=== PATIENT | male | born 1990 | race American Indian/Alaskan Native ===

== ENCOUNTER 2017-05-23 17:56 | Emergency (ER) | payer SELFPAY ==
[2017-05-23] MEDS ORDERED: TETRACAINE 0.5% OU ONE (20:19)
[2017-05-23] MEDS ORDERED: MORPHINE IM ONE (20:36)
[2017-05-23] MEDS ORDERED: ZOFRAN ODT PO ONE (20:37)
--- NOTE | 2017-05-23 20:42 | Emergency Department Report ---
ED ENT HPI - General Chief complaint: Earache Stated complaint: INSECT INSIDE EAR/PAIN Time Seen by Provider: 05/23/17 19:35 Source: patient Mode of arrival: Ambulatory Limitations: No Limitations - History of Present Illness Initial comments: 26 y/o male presents to ED with c/o discomfort, pain in rt ear x 3 days. Pt recals introducing a Q-tip into his right ear x 3 days ago complaint: ear pain -: Gradual, days(s) (3) Location: R ear Severity: moderate Severity scale (0 -10): 6 Quality: aching, sharp Consistency: constant Improves with: none Worsens with: none Context- Ear: other (FB introduced into right ear) - Related Data Previous Rx's Medication Instructions Recorded Last Taken Type Ciprofloxacin/Hydrocortisone 4 drop OT BID #1 bottle 05/23/17 Unknown Rx [Ciprofloxacin HC OTIC] Ibuprofen [Motrin 800 MG tab] 800 mg PO Q8HR PRN #30 tablet 05/23/17 Unknown Rx traMADol [Ultram] 50 mg PO Q6HR PRN #20 tablet 05/23/17 Unknown Rx Allergies Allergy/AdvReac Type Severity Reaction Status Date / Time No Known Allergies Allergy Verified 05/23/17 19:01 ED Dental HPI - General Chief complaint: Earache Stated complaint: INSECT INSIDE EAR/PAIN Time Seen by Provider: 05/23/17 19:35 Source: patient Mode of arrival: Ambulatory Limitations: No Limitations - Related Data Previous Rx's Medication Instructions Recorded Last Taken Type Ciprofloxacin/Hydrocortisone 4 drop OT BID #1 bottle 05/23/17 Unknown Rx [Ciprofloxacin HC OTIC] Ibuprofen [Motrin 800 MG tab] 800 mg PO Q8HR PRN #30 tablet 05/23/17 Unknown Rx traMADol [Ultram] 50 mg PO Q6HR PRN #20 tablet 05/23/17 Unknown Rx Allergies Allergy/AdvReac Type Severity Reaction Status Date / Time No Known Allergies Allergy Verified 05/23/17 19:01 ED Review of Systems ROS: Stated complaint: INSECT INSIDE EAR/PAIN Other details as noted in HPI Comment: All other systems reviewed and negative Constitutional: denies: chills, diaphoresis, fever, malaise Eyes: denies: eye pain, eye discharge, vision change ENT: ear pain. denies: dental pain, epistaxis Respiratory: denies: see HPI, cough, orthopnea, shortness of breath, SOB with exertion, SOB at rest Cardiovascular: denies: chest pain, palpitations, dyspnea on exertion, edema, syncope, paroxysmal nocturnal dyspnea Endocrine: no symptoms reported Gastrointestinal: denies: nausea, vomiting, diarrhea, constipation, hematemesis Genitourinary: denies: urgency, dysuria, frequency, hematuria, discharge Musculoskeletal: denies: back pain, joint swelling, arthralgia Skin: denies: lesions, change in color, change in hair/nails ED Past Medical Hx - Past Medical History Previous Medical History?: No - Surgical History Past Surgical History?: No - Social History Smoking Status: Never Smoker Substance Use Type: None - Medications Home Medications: Home Medications Medication Instructions Recorded Confirmed Last Taken Type Ciprofloxacin/Hydrocortisone 4 drop OT BID #1 bottle 05/23/17 Unknown Rx [Ciprofloxacin HC OTIC] Ibuprofen [Motrin 800 MG tab] 800 mg PO Q8HR PRN #30 tablet 05/23/17 Unknown Rx traMADol [Ultram] 50 mg PO Q6HR PRN #20 tablet 05/23/17 Unknown Rx ED Physical Exam - General Limitations: No Limitations General appearance: alert, in distress (mild) - Head Head exam: Present: atraumatic, normocephalic, normal inspection - Eye Eye exam: Present: normal appearance, PERRL, EOMI. Absent: scleral icterus, conjunctival injection Pupils: Absent: normal accommodation - ENT ENT exam: Present: normal exam, normal orophraynx, mucous membranes moist, other (FB seen in right ear with otitis externa) - Neck Neck exam: Present: normal inspection, full ROM. Absent: tenderness, meningismus, thyromegaly - Respiratory Respiratory exam: Present: normal lung sounds bilaterally. Absent: respiratory distress, wheezes, rales, chest wall tenderness, accessory muscle use, decreased breath sounds - Cardiovascular Cardiovascular Exam: Present: regular rate, normal rhythm, normal heart sounds. Absent: bradycardia, tachycardia - GI/Abdominal GI/Abdominal exam: Present: soft, normal bowel sounds. Absent: distended, tenderness, guarding, hyperactive bowel sounds, hypoactive bowel sounds, organomegaly, mass - Rectal Rectal exam: Present: deferred - External exam: Present: normal external exam - Extremities Exam Extremities exam: Present: normal inspection, full ROM, normal capillary refill - Back Exam Back exam: Present: normal inspection, full ROM. Absent: tenderness, CVA tenderness (L) ED Course Vital Signs 05/23/17 19:01 Temperature 98.1 F Pulse Rate 73 Respiratory 18 Rate Blood Pressure 129/85 O2 Sat by Pulse 97 Oximetry - Reevaluation(s) Reevaluation #1: 05/23/17 20:43 Multiple attempts made at retriving FB from right ear, not successful. Pt advised to follow up with ENT Critical Care Time: No Critical care attestation.: If time is entered above; I have spent that time in minutes in the direct care of this critically ill patient, excluding procedure time. ED Disposition Clinical Impression: Foreign body in right ear, initial encounter Disposition: TO HOME OR SELFCARE Is pt being admited?: No Does the pt Need Aspirin: No Condition: Stable Instructions: Ear Foreign Body (ED) Additional Instructions: DO NOT INTRODUCE ANY OBJECT INTO YOUR EARS Prescriptions: Ciprofloxacin/Hydrocortisone [Ciprofloxacin HC OTIC] 4 drop OT BID #1 bottle Ibuprofen [Motrin 800 MG tab] 800 mg PO Q8HR PRN #30 tablet PRN Reason: Pain traMADol [Ultram] 50 mg PO Q6HR PRN #20 tablet PRN Reason: Pain Referrals: PRIMARY CAREMD [Primary Care Provider] - 3-5 Days RAFFI DUNCAN MD [Staff Physician] - 3-5 Days (Call office for an appointment) Time of Disposition: 20:49
[2017-05-23 21:29] VITALS: BP 133/93
== END 2017-05-23 21:26 | disposition home or self-care (01) ==
LOC: ED 17:56
DX: T16.1XXA Foreign body in right ear, initial encounter (principal); X58.XXXA Exposure to other specified factors, initial encounter; Y93.89 Activity, other specified; Y92.89 Other specified places as the place of occurrence of the external cause; Y99.8 Other external cause status
CPT/HCPCS: 69200; 96372; 99282; J2270; Q0162

== ENCOUNTER 2017-05-24 17:09 | Emergency (ER) | payer SELFPAY ==
[2017-05-24 17:14] VITALS: BP 129/70
== END 2017-05-25 | disposition left against medical advice (07) ==
LOC: ED 17:09
DX: T16.1XXA Foreign body in right ear, initial encounter (principal); X58.XXXA Exposure to other specified factors, initial encounter; Y93.9 Activity, unspecified; Y92.89 Other specified places as the place of occurrence of the external cause; Y99.9 Unspecified external cause status; Z53.21 Procedure and treatment not carried out due to patient leaving prior to being seen by health care provider